=== PATIENT | female | born 1985 | race Caucasian/White ===

== ENCOUNTER 2016-11-16 20:02 | Emergency (ER) | payer SELFPAY ==
[2016-11-16 20:24] VITALS: BP 119/77
--- NOTE | 2016-11-16 20:27 | EDM.PDOC ---
ED HPI GI/ABDOMINAL - General Chief Complaint: Abdominal Pain Stated Complaint: PAIN IN LOWER ABDOMAINAL AREA Time Seen by Provider: 11/16/16 20:26 Source of Information: Reports: Patient History Limitations: Reports: No limitations - History of Present Illness INITIAL COMMENTS - FREE TEXT/NARRATIVE: 31-year-old female presents to the ED with diffuse right lower quadrant abdominal pain. She states a walker with pain on 0400 hours this morning. Pain is a very sharp stabbing component to it and is getting worse as the day has gone on. Associated feeling of need to void to try and relieve the discomfort but has not noticed any change in the color of the urine. History of kidney stones remotely. History of previous tubal ligation. She is last or most apparent was one week ago. She often does experience mittelschmerz pain. Cycles however are usually pretty regular. Pain does not radiate through to her back. Associated loss of appetite. Normal bowel movement earlier today without diarrhea. Tends to be on the constipated side. Symptom Onset Date: 11/16/16 Symptom Onset Time: 04:00 Timing/Duration: Reports: Hour(s):, Getting worse Location: RLQ Quality: Reports: cramping, stabbing, other (Sharp.) Severity: severe Improves with: Denies: defecating Worsens with: Reports: urinating (Illnesses pain is worse at the end of urination ) Context: Denies: sick contact, bad/questionable food, out of country travel, recent surgery, recent trauma, lifting, activity/exercise, other Associated Symptoms (-Female): Reports: constipation, loss of appetite, malaise. 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 [No Known Home Meds] 11/16/16 [History] Past Medical History - Past Surgical History GI Surgical History: Reports: Cholecystectomy, Hernia repair/other (Umbilical hernia repair) Female Surgical History: Reports: Tubal ligation Social & Family History - Tobacco Use Smoking Status *Q: Current Every Day Smoker Years of Tobacco use: 6 Packs/Tins Daily: 0.5 - Caffeine Use Caffeine Use: Reports: Coffee - Recreational Drug Use Recreational Drug Use: No - Living Situation & Occupation Living situation: Reports: Occupation: employed [employer] GENERAL - Review of Systems Review Of Systems: See Below Constitutional: Reports: no symptoms HEENT: Reports: No symptoms Respiratory: Reports: No Symptoms Cardiovascular: Reports: No symptoms Endocrine: Reports: no symptoms GI/Abdominal: Reports: Abdominal pain : Reports: frequency. Denies: flank pain, urgency Musculoskeletal: Reports: no symptoms Skin: Reports: no symptoms Neurological: Reports: No Symptoms Psychiatric: Reports: No symptoms Hematologic/Lymphatic: Reports: no symptoms ED EXAM, GI/ABD - Physical Exam Exam: See Below Exam Limited By: No limitations General Appearance: alert, WD/WN, moderate distress (She feels it feels better to push down on the right or quadrant haven't eased the pain.) Eyes: bilateral: normal appearance (No jaundice.) Throat/Mouth: Normal inspection, Normal lips, Normal oropharynx, Other Head: atraumatic, normocephalic (Is mildly dry and coated) Neck: normal inspection, supple, full range of motion. No: lymphadenopathy (L) , lymphadenopathy (R) Respiratory/Chest: no respiratory distress, lungs clear, normal breath sounds, no accessory muscle use, chest non-tender Cardiovascular: normal peripheral pulses, regular rate, rhythm, no edema, no gallop, no murmur GI/Abdominal: hyperactive bowel sounds (Throughout the abdomen.), tenderness ( Right lower quadrant almost in the pelvis.). No: guarding, rebound, rigidity, McBurney's sign, Rovsing's sign Back Exam: normal inspection, full range of motion. No: CVA tenderness (L), CVA tenderness (R) Extremities: normal inspection, normal range of motion, non-tender, no pedal edema, normal capillary refill Neurological: alert, oriented, CN II-XII intact, normal cognition, normal gait Psychiatric: normal affect, normal mood Skin Exam: Warm, Dry, Intact, Normal color, No rash Course - Vital Signs Last Recorded V/S: Last Vital Signs Temp 36.6 C 11/16/16 20:21 Pulse 94 11/16/16 20:21 Resp 16 11/16/16 20:21 BP 119/77 11/16/16 20:21 Pulse Ox 97 11/16/16 20:21 - Orders/Labs/Meds Orders: Active Orders 24 hr Category Date Time Status Abdomen 1V Flat [CR] Stat Exams 11/16/16 20:33 Taken Labs: Laboratory Tests 11/16/16 11/16/16 11/16/16 Range/Units 20:45 20:45 21:00 WBC 8.38 (3.98-10.04) K/mm3 RBC 4.58 (3.98-5.22) M/mm3 Hgb 13.7 (11.2-15.7) gm/L Hct 40.5 (34.1-44.9) % MCV 88.4 (79.4-94.8) fl MCH 29.9 (25.6-32.2) pg MCHC 33.8 (32.2-35.5) g/dl RDW Std Deviation 42.7 (36.4-46.3) fL Plt Count 281 (182-369) K/mm3 MPV 10.5 (9.4-12.3) fl Neutrophils % (Manual) 52 (40-60) % Band Neutrophils % 0 (0-10) % Lymphocytes % (Manual) 27 (20-40) % Atypical Lymphs % 7 % Monocytes % (Manual) 5 (2-10) % Eosinophils % (Manual) 9 H (0.7-5.8) % Basophils % (Manual) 0 L (0.1-1.2) Platelet Estimate Adequate Plt Morphology Comment Normal Poikilocytosis 1+ slight Anisocytosis 1+ slight Microcytosis 1+ slight Macrocytosis 1+ slight Tear Drop Cells 1+ slight RBC Morph Comment Abnormal Sodium 140 (136-145) mEq/L Potassium 4.1 (3.5-5.1) mEq/L Chloride 105 (98-107) mEq/L Carbon Dioxide 24 (21-32) mEq/L Anion Gap 15.1 H (5-15) BUN 16 (7-18) mg/dL Creatinine 0.8 (0.55-1.02) mg/dL Est Cr Clr Drug Dosing 96.26 mL/min Estimated GFR (MDRD) > 60 (>60) mL/min BUN/Creatinine Ratio 20.0 H (14-18) Glucose 99 (74-106) mg/dL Calcium 8.9 (8.5-10.1) mg/dL Total Bilirubin 0.4 (0.2-1.0) mg/dL AST 11 L (15-37) U/L ALT 19 (14-59) U/L Alkaline Phosphatase 80 (46-116) U/L C-Reactive Protein 0.4 (<1.0) mg/dL Total Protein 7.3 (6.4-8.2) g/dl Albumin 3.8 (3.4-5.0) g/dl Globulin 3.5 gm/dL Albumin/Globulin Ratio 1.1 (1-2) Urine Color Light yellow (Yellow) Urine Appearance Slt cloudy H (Clear) Urine pH 6.0 (5.0-8.0) Ur Specific [place] 1.010 (1.005-1.030) Urine Protein Negative (Negative) Urine Glucose (UA) Negative (Negative) Urine Ketones Negative (Negative) Urine Occult Blood Negative (Negative) Urine Nitrite Negative (Negative) Urine Bilirubin Negative (Negative) Urine Urobilinogen 0.2 (0.2-1.0) Ur Leukocyte Esterase Negative (Negative) Urine RBC 0-5 (0-5) /hpf Urine WBC 0-5 (0-5) /hpf Ur Epithelial Cells Not Reportable Ur Squamous Epith Cells 0-5 (0-5) /hpf Urine Bacteria Few (FEW) /hpf Urine Mucus Not seen (FEW) /hpf Meds: Medications Discontinued Medications Generic Name Dose Route Start Last Admin Trade Name Freq PRN Reason Stop Dose Admin Dicyclomine HCl 20 mg 11/16/16 21:45 11/16/16 21:52 Bentyl PO 11/16/16 21:46 20 mg ONETIME ONE Administration Hydromorphone HCl 0.5 mg 11/16/16 20:32 11/16/16 20:49 Dilaudid IVPUSH 11/16/16 20:33 0.5 mg ONETIME ONE Administration Sodium Chloride 1,000 mls @ 150 mls/hr 11/16/16 20:45 11/16/16 20:50 Normal Saline IV 150 mls/hr ASDIRECTED BERTA Administration Magnesium Citrate 240 ml 11/16/16 21:45 11/16/16 21:52 Citrate Of Magnesia PO 11/16/16 21:46 296 ml ONETIME ONE Administration Metoclopramide HCl 10 mg 11/16/16 20:32 11/16/16 20:50 Reglan IVPUSH 11/16/16 20:33 10 mg ONETIME ONE Administration - Radiology Interpretation Free Text/Narrative:: 31-year-old female presents the ED for evaluation of right lower quadrant abdominal pain that awoke her from sleep around 0400 hours this morning. Pain is very sharp stabbing colicky component to the pain. No associated nausea or vomiting. Bowels did move slightly earlier this morning. She does have a constant feeling of need to void and some increased pain at the end of voiding in the right lower quadrant area history of remote renal stones. Has had previous tubal ligation umbilical hernia repair and cholecystectomy. Examination reveals hyperactive bowel sounds throughout the abdomen. She claims that she tends to be more on the constipated side. She is well aware of mittelschmerz pain usually each cycle. Last menstrual period was one week ago. Plan IV normal saline 150 mils per hour. Given Dilaudid 0.5 mg IV and Reglan 10 mg IV for pain relief. In a KUB will be obtained. Urinalysis as well routine labs differential diagnosis renal stone versus ovarian cyst versus cecal constipation. - Re-Assessments/Exams Free Text/Narrative Re-Assessment/Exam: 11/16/16 21:45: Lab work returned completely normal. Urinalysis also was normal. The KUB reveals increased stool throughout the entire colon compatible with significant constipation. The cecum particular is involved. There are a few dilated loops of small bowel in the mid pelvis without any signs of obstruction. Plan patient will be treated with Bentyl 20 mg orally. She'll be given 8 ounces of Citroma mixed with 5 ounces of juice of choice orally once. This should start work in one to 2 hours and produce 3-5 bowel movements over the next 4 hours. Patient advised return to medical care if not completely back to normal after bowel cleanse. Departure - Departure Time of Disposition: 21:46 Disposition: Home, Self-Care 01 Condition: fair Clinical Impression: Constipation by delayed colonic transit Abdominal pain Qualifiers: Abdominal location: right lower quadrant Qualified Code(s): R10.31 - Right lower quadrant pain Instructions: Constipation, Adult, Abdominal Pain, Adult, [id number] Referrals: PCP,None [Primary Care Provider] - Forms: ED Department Discharge Additional Instructions: Evaluation in the emergency department tonight in regards to persistent right lower quadrant sharp stabbing pain throughout most of the day. X-ray of the abdomen reveals increased stool throughout the entire colon compatible with constipation. There are also a few dilated loops of small bowel with air in the central abdomen. Lab work prove to be completely normal. Urinalysis is also normal. Treatment is therefore bowel cleanse. Suggest use of 8 ounces of Citroma mixed with 4-5 ounces of juice of choice taken orally once. This will usually start work in one to 3 hours and the bowels were usually before 5 times often in some degree of diarrhea. This should relieve the abdominal pain completely. If not completely back to normal by tomorrow morning he should be seen by medical professional again. - My Orders Last 24 Hours: My Active Orders 11/16/16 20:33 Abdomen 1V Flat [CR] Stat - Assessment/Plan Last 24 Hours: My Active Orders 11/16/16 20:33 Abdomen 1V Flat [CR] Stat
[2016-11-16] MEDS ORDERED: HYDROmorphone 0.5 MG/0.5 ML Syringe IVPUSH ONE (20:32)
[2016-11-16] MEDS ORDERED: Metoclopramide 10 MG/2 ML SDV IVPUSH ONE (20:32)
[2016-11-16] MEDS ORDERED: Sodium Chloride 0.9% 1,000 ML IV SCH (20:45)
[2016-11-16] MEDS ORDERED: Magnesium Citrate Solution 296 ML Bottle PO ONE (21:45)
[2016-11-16] MEDS ORDERED: Dicyclomine 10 MG Cap PO ONE (21:45)
--- NOTE | 2016-11-17 10:57 | CR ---
Abdomen: Supine view of the abdomen was obtained. Scattered small bowel gas and gas within the colon is seen which appears unremarkable. Surgical clips are seen from prior cholecystectomy. No abnormal calcifications or discrete soft tissue abnormality is seen. Bony structures are unremarkable. Impression: 1. Incidental findings. Diagnostic code #2
== END 2016-11-16 21:55 | disposition home or self-care (01) ==
LOC: JD.ED 20:02
DX: K59.01 Slow transit constipation (principal); F17.210 Nicotine dependence, cigarettes, uncomplicated; Z90.49 Acquired absence of other specified parts of digestive tract; Z98.890 Other specified postprocedural states
CPT/HCPCS: 36415; 74000; 80053; 81001; 85025; 86140; 96361; 96374; 96375; 99284; A9270; J1170; J2765; J7040